=== PATIENT | female | born 1990 ===

== ENCOUNTER 2019-03-28 23:41 | Emergency (ER) | payer SELFPAY ==
[~2019-03-28] VITALS: Ht 160 cm; Wt 81.0 kg
[2019-03-28 23:42] VITALS: BP 128/83
== END 2019-03-29 01:00 | disposition left against medical advice (07) ==
LOC: EMS 23:42
DX: S61.213A Laceration without foreign body of left middle finger without damage to nail, initial encounter (principal); Z53.21 Procedure and treatment not carried out due to patient leaving prior to being seen by health care provider; W25.XXXA Contact with sharp glass, initial encounter; Y93.89 Activity, other specified; Y92.89 Other specified places as the place of occurrence of the external cause; Y99.8 Other external cause status